=== PATIENT | female | born 1970 | race Caucasian/White ===

== ENCOUNTER 2023-03-15 04:50 | Emergency (ER) | payer OTHER, SELFPAY ==
[2023-03-15] VITALS (9 sets, daily range): BP systolic 113–153; BP diastolic 49–80; PULSE 83–106; RESP 12–20; TEMP 36.8–37.7; O2SAT 90–97; BMI 36.2
--- NOTE | ~2023-03-15 | XR_ITS ---
EXAMINATION: XR CHEST CLINICAL INFORMATION: Shortness of breath, cough COMPARISON: None available. TECHNIQUE: 2 views of the chest were obtained. FINDINGS: Somewhat limited assessment due to patient rotation. Lung volumes are symmetric. There is trace streaky left basilar opacity favoring atelectasis. No additional consolidation. No evidence of pneumothorax, pleural effusion, or pulmonary edema. The cardiomediastinal contour is unremarkable. No acute osseous findings are seen. XR/XR chest 2V IMPRESSION: Trace streaky left basilar opacity favoring atelectasis. No additional consolidation.
[2023-03-15 06:02] LABS: COVID-19 Test Negative (Negative); IDNOW Serial# 152EDE1D
[2023-03-15 06:03] LABS: IDNOW Serial# 08D9AD1C; Influenza A Negative (Negative); Influenza B2 Negative (Negative)
--- NOTE | 2023-03-15 06:34 | ED_ITS ---
HPI - General Adult General Chief complaint: Dyspnea Stated complaint: SOB Time Seen by Provider: 03/15/23 06:22 Source: patient and family (Daughter) Mode of arrival: EMS Limitations: no limitations History of Present Illness HPI narrative: Patient is a 52-year-old female with history of CVD presenting to the emergency department with complaint of nonproductive cough and body aches as well as shortness of breath for the past 3 days. Patient reports that her daughter recently had COVID approximately 2 weeks ago. At that time patient had what she describes as laryngitis, states she tested for COVID at that time and was negative. Reports she felt better for approximately 1 week, then developed current symptoms 3 days ago. She denies fevers. Denies chest pain or palpitations, dizziness or lightheadedness. States cough is worse with laying flat and is causing rib pain. Has taken ibuprofen and DayQuil with little relief. MD complaint: Shortness of breath, cough Onset (ago): day(s) Associated symptoms: other (Body aches) Treatments prior to arrival: NSAID and other Related Data Previous Rx's Medication Instructions Recorded azithromycin 250 mg tablet See Rx Instructions PO .COMPLEX #6 03/15/23 tabs codeine 7.5 mg-guaifenesin 225 5 ml PO Q6H PRN cough 3 days #100 03/15/23 mg/5 mL oral liquid mL prednisone 20 mg tablet 40 mg (2 x 20 mg) PO DAILY #8 tabs 03/15/23 Allergies Allergy/AdvReac Type Severity Reaction Status Date / Time amitriptyline [From ELAVIL] Allergy Unknown UNKNOWN Verified 03/15/23 05:26 carbamazepine [From TEGRETOL] Allergy Unknown UNKNOWN Verified 03/15/23 05:26 desvenlafaxine [From PRISTIQ] Allergy Unknown UNKNOWN Verified 03/15/23 05:26 dihydroergotamine Allergy Unknown UNKNOWN Verified 03/15/23 05:26 [From MIGRANAL] gabapentin [GABAPENTIN] Allergy Unknown UNKNOWN Verified 03/15/23 05:26 Iodinated Contrast Media Allergy Unknown SWELLING Verified 03/15/23 05:26 [CONTRAST, IV] mirtazapine [From REMERON] Allergy Unknown UNKNOWN Verified 03/15/23 05:26 nadolol [NADOLOL] Allergy Unknown UNKNOWN Verified 03/15/23 05:26 sumatriptan [From IMITREX] Allergy Unknown UNKNOWN Verified 03/15/23 05:26 Review of Systems Review of Systems: As per HPI. Yes all other systems are reviewed and are negative Constitutional: Constitutional: Reports as per HPI [facility] Social History Social History Alcohol intake: never Smoked in Last 30 Days: Yes Use of substances other than those prescribed or required for medical reasons: Yes Substance Use Type: Marijuana Advance Directives: No Advance Directives Information Provided: Yes Patient : No Physical Exam ED Vital Signs: Vital Signs - 24 hr 03/15/23 05:27 03/15/23 06:38 03/15/23 06:54 Temperature 98.6 F 99.7 F Pulse Rate 93 83 86 Respiratory Rate 15 16 16 Blood Pressure 139/67 132/64 Pulse Oximetry 95 96 Oxygen Delivery Method Nasal Cannula Nasal Cannula Oxygen Flow Rate 2 03/15/23 07:18 Temperature Pulse Rate 102 H Respiratory Rate 20 Blood Pressure Pulse Oximetry 95 Oxygen Delivery Method Nasal Cannula Oxygen Flow Rate BMI result Body Mass Index 36.2 Vital signs have been reviewed and appear to be correct. Blood pressure normal. Heart rate normal. Respiratory rate normal. Temperature normal. Oxygen saturation normal with supplemental oxygen. Const General: cooperative, healthy appearing and no acute distress Orientation/consciousness: oriented to person, oriented to place, oriented to time and patient oriented x3 Limitations: no limitations HENMT Head: Yes normocephalic and Yes atraumatic Ears: external ears normal General nose exam: Normal external nose present Face and sinus: Yes face symmetric Mouth: oropharynx normal and moist mucous membranes Throat: Yes uvula midline Eyes Pupils: Equal, round and reactive pupils present Neck Neck: Yes normal visual inspection and Yes supple Resp Effort & Inspection: normal respiratory effort and able to speak in complete sentences Auscultation: wheezes expiratory wheezes and throughout Cardio Rate: regular rate Rhythm: regular rhythm Heart sounds: S1 normal heart sound present and S2 normal heart sound present GI Palpation (GI): Soft to palpation and nontender Auscultation: normoactive bowel sounds General: Yes no CVA tenderness Back/Spine/Pelvis Back: no CVA tenderness Skin General skin exam: elasticity normal and turgor normal Neuro General: oriented to person, oriented to place, oriented to time, patient oriented x3, moves all extremities, no focal motor deficits and CN's II-XI intact bilaterally Cranial nerves: Yes Equal, round and reactive pupils present Cognition (Neuro): normal cognition Extrem General: Yes full ROM, Yes no pedal edema and Yes no calf tenderness Psych Mental Status: mental status grossly normal Affect: normal affect Thought process: Normal thought process present Medications Administered Discontinued Medications Generic Name Dose Route Start Last Admin Trade Name Dea PRN Reason Stop Dose Admin Albuterol Sulfate 5 mg/ 0 mg 03/15/23 06:47 03/15/23 06:51 Albuterol/Ipratropium 3 ml INHALE 03/15/23 06:48 2.5 each ONCE ONE Administration Guaifenesin/Codeine Phosphate 10 ml 03/15/23 07:29 03/15/23 07:32 Guaifen/Codeine Sf 200/20/10ml 10 Ml Liquid PO 03/15/23 07:30 10 ml ONCE ONE Administration Prednisone 40 mg 03/15/23 06:44 03/15/23 07:17 Prednisone 20 Mg Tablet PO 03/15/23 06:45 40 mg ONCE ONE Administration Medical Decision Making Medical Decision Making [facility] Narrative: Patient is a 52-year-old female with history of CVD presenting to the emergency department with complaint of nonproductive cough and body aches as well as shortness of breath for the past 3 days. On exam patient is awake, A+Ox3, VS WNL, afebrile, normal neurological exam without focal deficits, physical exam findings as above. Given reported symptoms and physical exam findings, initial differential includes viral illness, Covid, influenza, bronchitis, pneumonia, COPD exacerbation. Swabs for flu and Covid negative. X-ray notable for trace left basilar streaky opacity favoring atelectasis. My interpretation is in agreement with the radiologist's interpretation. Plan: ED bronchodilator protocol, prednisone Patient maintaining adequate oxygenation on room air, symptoms improved with treatment. Feel patient is stable for discharge home. Given hx of COPD, will treat with azithromycin, prednisone, guaifenisen/codeine at patient request. Instructed patient to follow up with PCP. Return precautions discussed. Patient verbalized understanding of and agreement with plan. Differential Diagnosis Differential Diagnoses: The differential diagnosis associated with the presentation includes As per [facility] Lab Data [facility] Lab Attestation statement: I reviewed the patient's lab results. As per [facility] Labs: Lab Results 03/15/23 Range/Units 05:43 COVID-19 (MARY LOU) Negative (Negative) COVID-19 Clin Com See Note Influenza Type A (LIASNDRA) Negative (Negative) Influenza Type B (LISANDRA) Negative (Negative) Influenza A & B Note See Note Independent Interpretation I performed an independent interpretation of an: Plain X-Ray Interpretation: Trace streaky left basilar opacity Radiology Impression Discussion of test interpretation with radiology: I have reviewed the radiologi st's reading. Radiologist Impression: XR/XR chest 2V IMPRESSION: Trace streaky left basilar opacity favoring atelectasis. No additional consolidation. External Record Review External record reviewed: Inpatient record, Office record and Outpatient record Prescription Management I considered prescription management with: Antibiotic and Other Discharge Plan Discharge Clinical Impression: Acute exacerbation of chronic obstructive pulmonary disease, Acute upper respiratory infection Patient Disposition: Home, Self-Care Instructions: Upper Respiratory Infection (DC), COPD (Chronic Obstructive Pulmonary Disease) (DC) Additional Instructions: You were evaluated in the emergency department today for shortness of breath and cough. Your Covid and flu tests were negative. Your symptoms are likely related to a viral illness which will resolve on its own with time and rest but have caused a worsening of your COPD. You are being treated with a course of antibiotics, please complete the course as prescribed. You are being prescribed a course of steroids called prednisone, please take this medication as prescribed. You are being prescribed cough medicine which you can take every 6 hours as needed. You should ensure adequate fluid intake, and can use Tylenol 650 mg or ibuprofen 600 mg every 6 hours as needed for fever or discomfort. Please follow-up with your primary care provider this week. Return to the emergency department if you develop chest pain, worsening shortness of breath, difficulty swallowing, fever 100.4? F or greater or any other concerning symptoms. Prescriptions: New azithromycin 250 mg tablet See Rx Instructions .ROUTE .COMPLEX Qty: 6 0RF Rx Instructions: For 250 mg dose pack: take 500 mg today (day 1), then 250 mg for 4 days (days 2-5) prednisone 20 mg tablet 40 mg PO DAILY Qty: 8 0RF codeine-guaifenesin 7.5-225 mg/5 mL liquid 5 ml PO Q6H PRN (Reason: cough) 3 Days Qty: 100 0RF
[2023-03-15] MEDS: Albuterol Sulfate 5 MG, Albuterol/Iprat 2.5/0.5MG 3 ML 3 ML INHALE (06:51)
[2023-03-15] MEDS: predniSONE 20 MG TABLET 40 MG PO (07:17)
--- NOTE | 2023-03-15 07:21 | PC.NURSE ---
patient a&ox3, pts O2 was shut off to see how she does on room air- pt maintained O2 sat of 95-96% on room air, pt speaking in full sentences, hr sinus tach on media monitor, pt requesting medication for cough, will speak with provider.
[2023-03-15] MEDS: guaiFEN/Codeine SF 200/20/10ML 10 ML LIQUID PO (07:32)
--- NOTE | 2023-03-15 07:33 | PC.NURSE ---
pt medicated per order
--- NOTE | 2023-03-15 09:35 | PC.NURSE ---
pt ambulated to the bathroom upon ambulation pt became dyspnic and O2 sat decreased to 90%, pt placed back on O2 2L NC will speak with provider
[2023-03-15] MEDS: Magnesium Sulfate/H2O 2 GM/50 ML PIGGYBACK IV (10:02)
[2023-03-15] MEDS: Benzonatate 100 MG CAPSULE PO (10:02)
--- NOTE | 2023-03-15 10:05 | PC.NURSE ---
pt removed from O2 at this time, IV mag hung per order, pt given po cough medicine, contour sander nsr, vss, call vazquez within reach, will continue to monitor.
--- NOTE | 2023-03-15 10:52 | PC.NURSE ---
pt ambulated to bathroom
== END 2023-03-15 11:26 | disposition home or self-care (01) ==
PROVIDERS: Emergency Provider Emergency Medicine
DX: J44.1 Chronic obstructive pulmonary disease with (acute) exacerbation (principal); J06.9 Acute upper respiratory infection, unspecified; R06.02 Shortness of breath; Z11.52 Encounter for screening for COVID-19
CPT/HCPCS: 71046; 87502; 87635; 94640; 96374; 99284; 99285; J3475